=== PATIENT | female | born 1935 | race Caucasian/White ===

== ENCOUNTER → 2016-12-26 | Outpatient (CLI) | payer MEDICARE, OTHER ==
[~2016-12-26] MED LIST: ACETAMINOPHEN PO; ASPIRIN EC81 M1 PO; ASPIRIN81 M1 PO; BENADRYL25 M1 PO; COLACE PO; ELMIRON100 MG PO; EVISTA60 M1 PO; EVISTA60 MG PO; FLAGYL PO; HYDROCODON-ACE1 EAC9 PO; LEVAQUIN PO; LEVOTHYROXINE50 MC1 PO; LIPITOR PO; LORTAB 5/500 TA1 TA1 PO; LOTREL 5-20 MG1 CAP PO; LOTREL 5/10 MG1 CAP PO; MACROBID 100 M100 MG PO; METAMUCIL PO; MULTI-VIT/MIN P1 TAB PO; MULTIPLE VITAMI1 T11 PO; PHENERGAN25 MG PO; PRILOSEC PO; PYRIDIUM PO; STOOL SOFTENER PO; TROSPIUM PO; VIT E PO; VITAMIN D1000 UNI1 PO; VITAMIN E PO; VITAMIN E800 UNIT PO
--- NOTE | ~2016-12-26 | MY29 ---
[facility] A Service [facility] RADIOLOGY TEXT RESULTS PATIENT: ROSALIE BECKWITH LOCATION: [facility] : 33 UNIT #: [id number] AGE: [address]: Catherine Ragland MD SEX: F ORDER DR: [id number] [facility] [address]. [place], [place] [address] [id number] O MR#: [id number] Acc #: [id number] NAME: ROSALIE BECKWITH : 1935 SEX: F STUDY DATE/TIME: 12/26/2016 10:54 UNIT: [facility] ROOM: STUDY DESCRIPTION: MY WILLIAM SCREENING W/ CAD BILAT Attending Physician: Catherine Ragland M.D. Referring Physician: Catherine Ragland M.D. Ordering Physician: Catherine Ragland M.D. Primary Care Physician: Bethel Hess M.D. MEDICAL IMAGING REPORT This report is preliminary unless electronic signature is present EXAM Digital screening mammogram 12/26/2016 HISTORY 81-year-old woman positive family history, sister in her 50s. Previous bilateral breast biopsies. Annual screen. COMPARISON Mammograms date to 10/01/2005 with most recent 12/26/2015. FINDINGS Digital imaging of each breast was completed utilizing screening protocol. Review includes FDA-approved CAD device. Breast parenchyma is fatty replaced and stable. There is no interval occurring breast mass. There are no suspicious microcalcifications and no architectural deformity. Multiple keratoses are partially imaged. IMPRESSION Negative mammogram. Annual screening is optional at this age. Patients over the age of 40 are entered into a reminder system with target due date for the next mammogram. A result letter will also be sent to the patient. BIRADS: 1 Negative Dictated by... John Martinez M.D. THIS IS AN ELECTRONICALLY VERIFIED REPORT John Martinez M.D. at 01/15/2017 1:04 PM [facility] A Service [facility] RADIOLOGY TEXT RESULTS PATIENT: ROSALIE BECKWITH [id number] : 33 UNIT #: [id number] AGE: [address]: Catherine Ragland MD SEX: F ORDER DR: TIFFANIE/angelia TD: 01/15/2017 09:36 JOB #: [id number] MEDICAL IMAGING REPORT Page 1 of 1 COPY
== END | disposition home or self-care (01) ==
LOC: CWCC 10:28
DX: Z12.31 Encounter for screening mammogram for malignant neoplasm of breast (principal); Z80.3 Family history of malignant neoplasm of breast
CPT/HCPCS: G0202